=== PATIENT | male | born 1990 ===

== ENCOUNTER 2020-01-03 15:56 | Emergency (ER) | payer BC ==
[~2020-01-03] VITALS: Wt 74.8 kg
[~2020-01-03 15:56] MED LIST: FLEXERIL5 MG PO; IBU-8800 MG PO; MOTRIN800 MG PO; NAPROSYN500 MG PO; NKHM; NORCO 5-325 TA1 EACH PO; TRAMADOL HCL50 MG PO
[2020-01-03] MEDS ORDERED: Motrin,Rufen800 MG PO (18:36)
== END 2020-01-03 18:37 | disposition home or self-care (01) ==
LOC: ED 15:56
DX: M77.8 Other enthesopathies, not elsewhere classified (principal); F17.200 Nicotine dependence, unspecified, uncomplicated

== ENCOUNTER 2021-03-23 10:33 | Emergency (ER) | payer SELFPAY ==
[~2021-03-23] VITALS: Ht 167.6 cm; Wt 76.2 kg
[~2021-03-23 10:33] MED LIST changes: +Motrin,Rufen800 MG PO
[2021-03-23 12:24] LABS: BILIRUBIN Negative (Negative); BLOOD Negative (Negative); CLARITY Clear (Clear); COLOR Yellow (Yellow); GLUCOSE Negative (Negative); KETONE Negative (Negative); LEUKO ESTERASE Negative (Negative); NITRITE Negative (Negative); PH 7.5 (4.5-8.0); UROBILINOGEN 0.2 E.U./dl (0.0-1.0)
[2021-03-23 12:35] LABS: BACTERIA TRACE
[2021-03-23 12:36] LABS: EPITHELIAL CELLS 0-2; RBC 0-2 rbc/hpf (0-2); WBC 0-2 wbc/hpf (0-5)
[2021-03-23 12:53] LABS: BASO % 0.4 % (0.0-1.0); EOS # 0.2 10*3/uL (0.0-0.4); EOS % 3.7 % (1.0-4.0); HEMATOCRIT 44.4 % (42.0-52.0); LYMPH # 1.4 10*3/uL (1.3-4.4); LYMPH % 29.4 % (27.0-41.0); MEAN CELL VOLUME 85.9 fl (80.0-94.0); MEAN CORPUSCULAR HGB 28.4 pg (27.0-31.0); MEAN CORPUSCULAR HGB CONC 33.1 g/dl (33.0-37.0); MEAN PLATELET VOLUME 10.5 fl (9.6-12.3); MONO # 0.2 10*3/uL (0.1-1.0); MONO % 4.9 % (3.0-9.0); NEUT % 61.2 % (47.0-73.0); PLATELET COUNT AUTOMATED 151 10*3/uL (130-400); RED BLOOD COUNT 5.17 10*6/uL (4.50-5.90); RED CELL DISTRI WIDTH 12.9 % (0-14.5); WHITE BLOOD COUNT 4.9 10*3/uL (4.8-10.8)
[2021-03-23 13:09] LABS: ALKALINE PHOSPHATASE 77 U/L (45-117); BUN 9 mg/dl (7-24); CHLORIDE 109 mmol/L (98-107); CREATININE 0.81 mg/dL (0.70-1.30); LIPASE 63 U/L (73-393); SGOT/AST 12 IU/L (3-35); SGPT/ALT 21 U/L (12-78); SODIUM 140 mmol/L (136-145); TOTAL PROTEIN 7.5 gm/dL (6.4-8.2)
[2021-03-23] MEDS ORDERED: CIPRO500 MG PO (14:36)
[2021-03-23] MEDS ORDERED: METRONIDAZOLE500 M1 PO (14:36)
== END 2021-03-23 16:31 | disposition home or self-care (01) ==
LOC: ED 10:33
PROVIDERS: Emergency Medicine; Physician Assistant
DX: K57.32 Diverticulitis of large intestine without perforation or abscess without bleeding (principal)